=== PATIENT | female | born 1970 | race Caucasian/White ===

== ENCOUNTER 2016-07-19 07:13 | Emergency (ER) | payer SELFPAY ==
[2016-07-19 07:36] VITALS: BP 118/68; O2SAT 98
--- NOTE | 2016-07-19 07:52 | ED PDOC ---
HPI: CCC, URI, Sore Throat Time Seen by Provider: 07/19/16 07:17 Chief Complaint (Nursing): ENT Problem Chief Complaint (Provider): ENT Problem History Per: Patient History/Exam Limitations: no limitations Onset/Duration Of Symptoms: Days (x3 weeks) Current Symptoms Are (Timing): Still Present Additional Complaint(s): 46 y/o female who presents to the emergency department with a complaint of nasal congestion, sore throat, and a non productive cough x3 weeks. Denies fever and shortness of breath. PMD: None Past Medical History Reviewed: Historical Data, Nursing Documentation, Vital Signs Vital Signs: Last Vital Signs Temp Pulse Resp BP 118/68 07/19/16 07:30 Pulse Ox 98 07/19/16 08:00 - Medical History PMH: Depression, HTN Denies: Chronic Kidney Disease - Surgical History Surgical History: No Surg Hx - Family History Family History: States: Unknown Family Hx - Living Arrangements Living Arrangements: Other (Alf) - Immunization History Hx Tetanus Toxoid Vaccination: No Hx Influenza Vaccination: No Hx Pneumococcal Vaccination: No - Home Medications Home Medications: Ambulatory Orders Medication Instructions Recorded Benztropine [Cogentin] 1 mg PO BID #60 tab 07/25/15 Pantoprazole [Protonix EC Tab] 20 mg PO BID #60 ect 07/25/15 Sertraline [Zoloft] 100 mg PO DAILY #30 tab 07/25/15 fluPHENAZine [Prolixin] 10 mg PO BID #60 tab 07/25/15 risperiDONE [RisperDAL Tab] 3 mg PO BID #60 tab 07/25/15 traZODone [Desyrel] 50 mg PO HS PRN #30 tab 07/25/15 Amoxicillin/Clavulanate [Augmentin 1 tab PO BID #20 tab 07/19/16 875 MG-125 MG] Fluticasone Nasal [Flonase] 1 actuation NS DAILY #1 spr 07/19/16 - Allergies Allergies/Adverse Reactions: Allergies Allergy/AdvReac Type Severity Reaction Status Date / Time lidocaine Allergy Mild RASH Verified 07/19/16 07:33 Review of Systems ROS Statement: Except As Marked, All Systems Reviewed And Found Negative Constitutional: Negative for: Fever ENT: Positive for: Nose Congestion, Throat Pain Respiratory: Positive for: Cough (Non productive). Negative for: Shortness of Breath Physical Exam - Reviewed Nursing Documentation Reviewed: Yes Vital Signs Reviewed: Yes - Physical Exam Appears: Positive for: Non-toxic, No Acute Distress Head Exam: Positive for: ATRAUMATIC, NORMOCEPHALIC Skin: Positive for: Normal Color, Warm, Dry ENT: Positive for: Other (Hyperemic throat). Negative for: Normal ENT Inspection, Sinus Pain/Drainage (No sinus tenderness) Neck: Positive for: Normal, Supple Cardiovascular/Chest: Positive for: Regular Rate, Rhythm. Negative for: Murmur Respiratory: Positive for: Normal Breath Sounds. Negative for: Accessory Muscle Use, Respiratory Distress Gastrointestinal/Abdominal: Positive for: Normal Exam, Soft. Negative for: Tenderness Extremity: Positive for: Normal ROM. Negative for: Pedal Edema, Swelling Neurologic/Psych: Positive for: Alert, Oriented - ECG O2 Sat by Pulse Oximetry: 98 (RA) Pulse Ox Interpretation: Normal Medical Decision Making Medical Decision Making: Time: 7:17 Initial impression: Upper Respiratory Infection with possible sinusitis Initial plan: --Rapid ground A Antigen --Revaluation Time: 8:00 Upon provider reevaluation patient is medically stable, and requires no further treatment in the ED at this time. Patient will be discharged home with Rx for Augmentin 875mg-125mg and Flonase. Counseling was provided and all questions were answered regarding diagnosis and need for follow up with Referred clinics. There is agreement to discharge plan. Return if symptoms persist or worsen. Clinical Impression: Sinusitis Scribe Attestation: Documented by Kenzie Culp, acting as a scribe for Medardo Lucero MD. Provider Scribe Attestation: All medical record entries made by the Scribe were at my direction and personally dictated by me. I have reviewed the chart and agree that the record accurately reflects my personal performance of the history, physical exam, medical decision making, and the department course for this patient. I have also personally directed, reviewed, and agree with the discharge instructions and disposition. Disposition - Clinical Impression Clinical Impression: Sinusitis - Patient ED Disposition Is Patient to be Admitted: No Counseled Patient/Family Regarding: Studies Performed, Rx Given - Disposition Referrals: [facility] [Outside] Disposition: Routine/Home Disposition Time: 08:00 Condition: FAIR Prescriptions: Amoxicillin/Clavulanate [Augmentin 875 MG-125 MG] 1 tab PO BID #20 tab Fluticasone Nasal [Flonase] 1 actuation NS DAILY #1 spr Instructions: Sinusitis (ED)
== END 2016-07-19 08:16 | disposition home or self-care (01) ==
LOC: H.ER 07:13
DX: J32.9 Chronic sinusitis, unspecified (principal); I10 Essential (primary) hypertension; J02.9 Acute pharyngitis, unspecified

== ENCOUNTER 2016-07-31 06:21 | Emergency (ER) | payer OTHER ==
--- NOTE | 2016-07-31 07:37 | ED PDOC ---
HPI: General Adult Time Seen by Provider: 07/31/16 07:13 Chief Complaint (Nursing): GI Problem Chief Complaint (Provider): Nausea History Per: Patient History/Exam Limitations: no limitations Onset/Duration Of Symptoms: Days Current Symptoms Are (Timing): Still Present Additional Complaint(s): 46 y/o female who presents to the emergency department with a complaint of nausea after being exposed to bed bug spray at the snf x1 day. Associated with chills, sore throat, loss of appetite, body aches, neck stiffness, frequent urination, and shaking of the body. Patient stated she believed she had gotten sick after she spent the night at the snf; reports she had been sick a total of 4 times since she's been there. Denies urinary discomfort. Of note, patient is domiciled and has been living in the snf x1 month after she lost her apartment. Last time patient was in there x3 weeks in October. 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 PMD: None Past Medical History Reviewed: Historical Data, Nursing Documentation, Vital Signs Vital Signs: Last Vital Signs Temp 97.9 F 07/31/16 06:37 Pulse 67 07/31/16 06:37 Resp 16 07/31/16 06:37 BP 105/77 07/31/16 06:37 Pulse Ox 98 07/31/16 07:48 - Medical History PMH: Depression, HTN Denies: Chronic Kidney Disease - Surgical History Surgical History: Tonsillectomy Other surgeries: Leg surgery - Family History Family History: States: Unknown Family Hx - Social History Current smoker - smoking cessation education provided: Yes (Heavy Smoker > 10 Cigarettes ) Alcohol: Social Drugs: Denies - Immunization History Hx Tetanus Toxoid Vaccination: No Hx Influenza Vaccination: No Hx Pneumococcal Vaccination: No - Home Medications Home Medications: Ambulatory Orders Medication Instructions Recorded Benztropine [Cogentin] 1 mg PO BID #60 tab 07/25/15 Pantoprazole [Protonix EC Tab] 20 mg PO BID #60 ect 07/25/15 Sertraline [Zoloft] 100 mg PO DAILY #30 tab 07/25/15 fluPHENAZine [Prolixin] 10 mg PO BID #60 tab 07/25/15 risperiDONE [RisperDAL Tab] 3 mg PO BID #60 tab 07/25/15 traZODone [Desyrel] 50 mg PO HS PRN #30 tab 07/25/15 Amoxicillin/Clavulanate [Augmentin 1 tab PO BID #20 tab 07/19/16 875 MG-125 MG] Fluticasone Nasal [Flonase] 1 actuation NS DAILY #1 spr 07/19/16 Guaifenesin/Pseudoephedrne HCl 1 each PO Q12H #20 tab.er.12h 07/31/16 [Mucinex D ER 600-60 mg Tablet] - Allergies Allergies/Adverse Reactions: Allergies Allergy/AdvReac Type Severity Reaction Status Date / Time lidocaine Allergy Mild RASH Verified 07/19/16 07:33 Review of Systems ROS Statement: Except As Marked, All Systems Reviewed And Found Negative Constitutional: Positive for: Chills, Other (Loss of appetite, shaking of the body and body aches) ENT: Positive for: Throat Pain Gastrointestinal: Positive for: Nausea Genitourinary Female: Positive for: Frequency (Described as abnormal). Negative for: Dysuria, Incontinence Musculoskeletal: Positive for: Other (Neck stiffness) Physical Exam - Reviewed Nursing Documentation Reviewed: Yes Vital Signs Reviewed: Yes - Physical Exam Appears: Positive for: Non-toxic, No Acute Distress Head Exam: Positive for: ATRAUMATIC, NORMOCEPHALIC Skin: Positive for: Normal Color, Warm, Dry Eye Exam: Positive for: Normal appearance. Negative for: Conjunctival injection ENT: Positive for: Normal ENT Inspection. Negative for: Pharyngeal Erythema Neck: Positive for: Normal, Supple Cardiovascular/Chest: Positive for: Regular Rate, Rhythm. Negative for: Murmur Respiratory: Positive for: Normal Breath Sounds. Negative for: Accessory Muscle Use, Respiratory Distress Gastrointestinal/Abdominal: Positive for: Normal Exam, Soft. Negative for: Tenderness Extremity: Positive for: Normal ROM. Negative for: Pedal Edema Neurologic/Psych: Positive for: Alert, Oriented - Laboratory Results Result Diagrams: 07/31/16 07:50 07/31/16 07:50 - ECG O2 Sat by Pulse Oximetry: 98 (RA) Pulse Ox Interpretation: Normal Medical Decision Making Medical Decision Making: Time: 7:13 Initial impression: Nausea status post bed bug chemical Initial plan: --Electrocardiogram Stat --COMP Metabolic Panel --Lipase Stat --ED Urine (POC) --ED Urine Dipstick (POC) --EKG-ED (EDNURTX) Stat --CBC w/ differential --Sodium Chloride 1,000 ml IV 1,000 mls/hr --IV Insertion (Saline Lock) --Revaluation Scribe Attestation: Documented by Kenzie Culp, acting as a scribe for Jaymie Guerin MD. Provider Scribe Attestation: All medical record entries made by the Scribe were at my direction and personally dictated by me. I have reviewed the chart and agree that the record accurately reflects my personal performance of the history, physical exam, medical decision making, and the department course for this patient. I have also personally directed, reviewed, and agree with the discharge instructions and disposition. Disposition - Clinical Impression Clinical Impression: Viral syndrome - Patient ED Disposition Is Patient to be Admitted: No Doctor Will See Patient In The: Office Counseled Patient/Family Regarding: Diagnosis, Need For Followup, Rx Given - Disposition Referrals: [facility] [Outside] [facility] [Outside] [facility] [Outside] Disposition: Routine/Home Disposition Time: 10:04 Condition: STABLE Prescriptions: Guaifenesin/Pseudoephedrne HCl [Mucinex D ER 600-60 mg Tablet] 1 each PO Q12H # 20 tab.er.12h Instructions: Viral Syndrome (ED) - POA Present On Arrival: None
[2016-07-31] MEDS ORDERED: Sodium Chloride 0.9% 1,000 ML IV STA (07:42)
[2016-07-31 08:25] LABS: BASO # 0.1 K/uL (0.0-0.2); BASO % 1.1 % (0.0-2.0); EOS # 0.2 K/uL (0.0-0.7); EOS % 1.3 % (0.0-4.0); HEMATOCRIT 42.5 % (34.0-47.0); LYMPH % 15.6 % (20.0-40.0); MEAN CELL VOLUME 95.8 fl (81.0-99.0); MEAN CORPUSCULAR HEMOGLOBIN 32.5 pg (27.0-31.0); MEAN CORPUSCULAR HGB CONC 33.9 g/dL (33.0-37.0); MEAN PLATELET VOLUME 8.4 fl (7.2-11.7); MONO # 0.6 K/uL (0.0-0.8); MONO % 4.4 % (0.0-10.0); NEUT # 9.7 K/uL (1.8-7.0); NEUT % 77.6 % (50.0-75.0); NRBC % 0.1 % (0.0-0.0); RED CELL DISTRIBUTION WIDTH 12.9 % (11.5-14.5); WHITE BLOOD COUNT 12.6 K/uL (4.8-10.8)
[2016-07-31 09:07] LABS: ALB/GLOB RATIO 1.5 (1.0-2.1); ALKALINE PHOSPHATASE 65 U/L (38-126); ALT/SGPT 22 U/L (9-52); AST/SGOT 25 U/L (14-36); BILIRUBIN,TOTAL 0.7 mg/dl (0.2-1.3); BLOOD UREA NITROGEN 5 mg/dl (7-17); CARBON DIOXIDE 25 mmol/L (22-30); CHLORIDE 104 mmol/L (98-107); GFR AFRICAN-AMERICAN > 60; GLUCOSE,RANDOM 106 mg/dL (65-105); LIPASE 91 U/L (23-300); SODIUM 145 mmol/l (132-148); TOTAL PROTEIN 7.9 G/DL (6.3-8.2)
[2016-07-31 09:58] LABS: RBC URINE 6 /hpf (0-3); URINE BACTERIA OCC (<OCC); URINE BILIRUBIN NEGATIVE (NEGATIVE); URINE BLOOD LARGE (NEGATIVE); URINE CALCIUM OXALATE CRYSTALS OCC /hpf (<OCC); URINE COLOR YELLOW (YELLOW); URINE GLUCOSE (UA) NEG (Normal); URINE KETONE NEGATIVE (NEGATIVE); URINE LEUKOCYTE ESTERASE NEG Leu/uL (Negative); URINE PROTEIN NEGATIVE (NEGATIVE); URINE UROBILINOGEN 0.2-1.0 mg/dL (0.2-1.0); WBC URINE 2 /hpf (0-5)
[2016-07-31 10:17] VITALS: BP 111/70; PULSE 79; RESP 17; TEMP 98.3; O2SAT 99
--- NOTE | 2016-07-31 18:05 | CARD ---
APPROVED REPORT EKG Measurement Heart [id number] <Conclusion> Normal sinus rhythm Normal ECG
== END 2016-07-31 10:29 | disposition home or self-care (01) ==
LOC: H.ER 06:21
DX: R11.0 Nausea (principal)